=== PATIENT | male | born 1965 | race Two or more races ===

== ENCOUNTER 2022-05-19 16:32 | Emergency (ER) | payer OTHER ==
[2022-05-19] MEDS: traMADol 50 MG Tab PO ONE (18:00)
[2022-05-19] MEDS: Ketorolac 10 MG Tab PO ONE (18:00)
== END 2022-05-19 18:00 | disposition home or self-care (01) ==
LOC: LL.ED 16:32
DX: S57.81XA Crushing injury of right forearm, initial encounter (principal); W23.1XXA Caught, crushed, jammed, or pinched between stationary objects, initial encounter
CPT/HCPCS: 73090; 73110; 73120; 99283; A9270